=== PATIENT | male | born 1985 | race Two or more races ===

== ENCOUNTER 2018-04-09 12:48 | Emergency (ER) | payer BC, OTHER ==
[~2018-04-09] VITALS: Ht 170.2 cm; Wt 60.8 kg
--- NOTE | 2018-04-09 12:55 | NUR ---
BIB SELF, SENT BY URGENT CARE FOR EVAL OF EXERTIONAL DYSPNEA. TO ER BED 9, HOKOKED TO MONITOR, AWAITING MD GOLDSTEIN
--- NOTE | 2018-04-09 13:04 | NUR ---
DR MORENO AT BEDSIDE
[2018-04-09] MEDS ORDERED: SERT100T12 PO (13:11)
[2018-04-09 13:35] LABS: BASOPHILS % (AUTO) 0.4 % (0.0-2.0); EOSINOPHILS % (AUTO) 0.5 % (0.0-6.0); HEMATOCRIT 44 % (39-51); LYMPHOCYTES % (AUTO) 22.6 % (20.0-44.0); MEAN CORPUSCULAR HGB CONC 34 g/dl (31.0-36.0); MEAN CORPUSCULAR VOLUME 87 fL (80-96); MONOCYTES # (AUTO) 0.6 /CMM (0.1-1.30); MONOCYTES % (AUTO) 6.7 % (2.0-12.0); NEUTROPHILS # (AUTO) 6.3 /CMM (1.8-8.9); NEUTROPHILS % (AUTO) 69.8 % (43.0-81.0); PLATELET COUNT (AUTO) 416 /CMM (150-450); RED BLOOD CELL COUNT(AUTO) 5.06 MIL/uL (4.5-6.0)
[2018-04-09 13:47] LABS: CALCIUM, SERUM 8.9 mg/dL (8.5-10.1); CARBON DIOXIDE 27 mmol/L (21-32); CHLORIDE 104 mmol/L (98-107); CREATININE 0.8 mg/dL (0.6-1.3); GLUCOSE 95 mg/dL (74-106); POTASSIUM 3.7 mmol/L (3.5-5.1); SODIUM SERUM 139 mmol/L (136-145); UREA NITROGEN, BLOOD 17 mg/dL (7-18)
[2018-04-09 14:00] LABS: ALANINE AMINOTRANSFERASE 25 U/L (12-78); ALBUMIN 4.2 g/dL (3.4-5.0); ALKALINE PHOSPHATASE 81 U/L (46-116); ASPARTATE AMINOTRANSFERASE 11 U/L (15-37); BILIRUBIN,DIRECT 0.1 mg/dL (0.0-0.2); BILIRUBIN,TOTAL 0.2 mg/dL (0.2-1.0); TOTAL PROTEIN, SERUM 7.6 g/dL (6.4-8.2)
[2018-04-09 14:03] LABS: APPEARANCE,URINE Clear (CLEAR); BILIRUBIN,URINE Negative (NEGATIVE); BLOOD, URINE Negative Ery/uL (NEGATIVE); COLOR,URINE Yellow (YELLOW); KETONES,URINE Negative (NEGATIVE); LEUKOCYTE ESTERASE ,URINE Negative (NEGATIVE); NITRITE, URINE Negative (NEGATIVE); PROTEIN,URINE Negative (NEGATIVE); UGLUCOSE Negative (NEGATIVE); UROBILINOGEN,URINE 0.2 EU/dL (0.2)
[2018-04-09 16:07] LABS: D-DIMER 1.26 mg/L(FEU (0.17-0.50)
[2018-04-09] MEDS ORDERED: IV NS 0.9% 1,000 ML IV ONE (16:30)
--- NOTE | 2018-04-09 16:32 | NUR ---
PT WHEELED OUT FOR CTA
[2018-04-09] MEDS ORDERED: IOHEXOL-350 100 ML VIAL IV ONE (16:36)
[2018-04-09] MEDS ORDERED: IV NS 0.9% 250 ML IV ONE (16:36)
--- NOTE | 2018-04-09 18:20 | NUR ---
IV removed. Catheter intact and site benign. Pressure and 4x4 applied to site. No bleeding noted.Patient discharged to home in stable condition. Written and verbal after care instructions given. Patient verbalizes understanding of instruction.
[2018-04-09 18:35] VITALS: BP 142/71
== END 2018-04-09 18:36 | disposition home or self-care (01) ==
LOC: ER 12:50
DX: R06.02 Shortness of breath (principal); R06.09 Other forms of dyspnea; Z79.899 Other long term (current) drug therapy
CPT/HCPCS: 36415; 71045; 71275; 80048; 80076; 81001; 84484; 85025; 85378; 85730; 93005; 99284; A4606; J7030; J7050; Q9967; 81000-TC

== ENCOUNTER 2018-11-28 12:50 | Emergency (ER) | payer BC, OTHER ==
[~2018-11-28] VITALS: Ht 175.3 cm; Wt 70.3 kg
[2018-11-28 12:50] VITALS: BP 121/68
[~2018-11-28 12:50] MED LIST: SERT100T12 PO
--- NOTE | 2018-11-28 13:14 | NUR ---
PERLA MARKS AT BEDSIDE FOR EVAL.
--- NOTE | 2018-11-28 13:35 | NUR ---
ER PHLEB AT BEDSIDE FOR BLOOD DRAW.
[2018-11-28 13:42] LABS: BASOPHILS % (AUTO) 0.8 % (0.0-2.0); EOSINOPHILS % (AUTO) 7.3 % (0.0-6.0); HEMATOCRIT 40 % (39-51); HEMOGLOBIN 13.5 g/dL (13.5-17.5); LYMPHOCYTES # (AUTO) 1.6 /CMM (0.8-4.8); LYMPHOCYTES % (AUTO) 29.8 % (20.0-44.0); MEAN CORPUSCULAR HGB CONC 34 g/dl (31.0-36.0); MEAN CORPUSCULAR VOLUME 90 fL (80-96); MONOCYTES # (AUTO) 0.6 /CMM (0.1-1.30); MONOCYTES % (AUTO) 11.5 % (2.0-12.0); NEUTROPHILS # (AUTO) 2.7 /CMM (1.8-8.9); NEUTROPHILS % (AUTO) 50.6 % (43.0-81.0); PLATELET COUNT (AUTO) 287 /CMM (150-450); RED BLOOD CELL COUNT(AUTO) 4.46 MIL/uL (4.5-6.0); WHITE BLOOD COUNT (AUTO) 5.3 K/uL (4.3-11.0)
--- NOTE | 2018-11-28 13:45 | NUR ---
TECH AT BEDSIDE FOR DUPLEX SCAN.
[2018-11-28 13:55] LABS: CREATININE 0.9 mg/dL (0.6-1.3)
[2018-11-28 14:00] LABS: ALBUMIN 3.8 g/dL (3.4-5.0); BILIRUBIN,TOTAL 0.2 mg/dL (0.2-1.0); TOTAL PROTEIN, SERUM 6.9 g/dL (6.4-8.2)
--- NOTE | 2018-11-28 14:34 | NUR ---
Patient discharged to home in stable condition. Written and verbal after care instructions given. Patient verbalizes understanding of instruction.
== END 2018-11-28 14:35 | disposition home or self-care (01) ==
LOC: ER 12:54
DX: R60.0 Localized edema (principal); F19.10 Other psychoactive substance abuse, uncomplicated; F10.10 Alcohol abuse, uncomplicated; Y90.9 Presence of alcohol in blood, level not specified; Z60.2 Problems related to living alone
CPT/HCPCS: 36415; 71045-TC; 80053-TC; 85025-TC; 93970-TC